=== PATIENT | female | born 1985 | race African-American/Black ===

== ENCOUNTER 2016-10-22 15:36 | Emergency (ER) | payer SELFPAY ==
[~2016-10-22] VITALS: Ht 175.3 cm; Wt 65.0 kg
[2016-10-22 16:16] LABS: BACTERIA, URINE RARE /hpf; BLOOD, URINE MOD (NEG); COMMENT (UR) CULT NOT INDICATED; CULTURE IF INDICATED CULT NOT INDICATED; GLUCOSE,URINE NEG (NEG); HYALINE CAST, URINE 1 /lpf (RARE); KETONE, URINE NEG (NEG); MUCUS URINE FEW /lpf (OCC); NITRITE,URINE NEG (NEG); PH, URINE 5.5 (5.0-8.5); SQUAMOUS EPITHELIAL CELL URINE 21 /hpf (0-5); URINE COLOR YELLOW (YELLW/STRAW)
--- NOTE | 2016-10-22 16:31 | PD ---
HPI . here to check if she is Chief Complaint: Related Problem Time Seen by Provider: 16:30 Travel History International Travel<30 days: No Contact w/Intl Traveler<30days: No Traveled to known affect area: No History of Present Illness HPI 31-year-old female here and wants to know if she is . Patient came to the emergency department demanding testing. She tells us she is 2 months . I go to see the patient and she is asking if she is she is also requesting an ultrasound. She has no other complaints. PFSH Past Medical History Medical History: Denies Significant Hx Tetanus Vaccination: > 5 Years Influenza Vaccination: No ?: Past Surgical History Surgical History: No Previous Surgery Social History Alcohol Use: No Tobacco Use: Yes (CIGARS ) Substance Use: No Allergies-Medications (Allergen,Severity, Reaction): Coded Allergies: No Known Allergies (Unverified , 10/22/16) Reported Meds & Prescriptions Reported Meds & Active Scripts Active No Active Prescriptions or Reported Medications Review of Systems General / Constitutional: No: Fever Eyes: No: Visual changes HENT: No: Headaches Cardiovascular: No: Chest Pain or Discomfort Respiratory: No: Shortness of Breath Gastrointestinal: No: Abdominal Pain Genitourinary: No: Dysuria Musculoskeletal: No: Pain Skin: No Rash Neurologic: No: Weakness Psychiatric: No: Depression Endocrine: No: Polydipsia Hematologic/Lymphatic: No: Easy Bruising Physical Exam Narrative GENERAL: AAO x 3, no acute distress, Well-nourished, well-developed patient. Patient has some bizarre behavior. SKIN: Warm and dry. No visible rashes or bruising. HEAD: Normocephalic and atraumatic. EYES: No scleral icterus. No injection or drainage. ENT: No nasal drainage noted. Mucous membranes pink. Airway patent. NECK: Supple, trachea midline. No JVD. CARDIOVASCULAR: Regular rate and rhythm without murmurs, gallops, or rubs. RESPIRATORY: Breath sounds equal bilaterally. No accessory muscle use. No rhonchi or rales. GASTROINTESTINAL: visual inspection normal EXTREMITIES: No cyanosis or edema. BACK: Nontender without obvious deformity. No CVA tenderness. PSYCH: AAO x 3, normal affect. Data Data Orders Urinalysis - C+S If Indicated (10/22/16 15:46) Ed Urine Pregnancytest Poc (10/22/16 15:46) Labs Laboratory Tests Test 10/22/16 16:09 Urine Color YELLOW Urine Turbidity HAZY Urine pH 5.5 Urine Specific [place] 1.029 Urine Protein 30 mg/dL Urine Glucose (UA) NEG mg/dL Urine Ketones NEG mg/dL Urine Occult Blood MOD Urine Nitrite NEG Urine Bilirubin NEG Urine Urobilinogen 2.0 MG/DL Urine Leukocyte Esterase SMALL Urine RBC 5 /hpf Urine WBC 4 /hpf Urine Squamous Epithelial 21 /hpf Cells Urine Bacteria RARE /hpf Urine Hyaline Casts 1 /lpf Urine Mucus FEW /lpf Microscopic Urinalysis Comment CULT NOT INDICATED MDM Medical Decision Making Medical Screen Exam Complete: Yes Emergency Medical Condition: Yes Medical Record Reviewed: Yes (none on file) Differential Diagnosis amenorrhea, , drug abuse Narrative Course 31-year-old female here and wants to know if she is . Patient came to the emergency department demanding testing. She tells us she is 2 months . I go to see the patient and she is asking if she is she is also requesting an ultrasound. She has no other complaints. Pt seen and examined. test is negative. UA appreciated. Culture not indicated. SHe has no UTI sxs She does demonstrate some bizarre behavior, however all of her responses are appropriate. She is aware of person,place, time and event. She is telling me that she wanted to have an ultrasound to check on her baby. Urine is negative. I explained this to her and advised her that any further testing will need to be done on outpatient basis. She seems understanding. She does not have any suicidal or homicidal thoughts. Diagnosis Primary Impression: Well adult exam Patient Instructions: General Instructions Additional Instructions: Please return to emergency department if your symptoms return or worsen. Follow up with your primary care provider. Scripts No Active Prescriptions or Reported Meds Disposition: 01 DISCHARGE HOME Condition: Stable Mary Lou Ludwig Oct 22, 2016 16:31 Mary Lou Ludwig Oct 22, 2016 16:31
== END 2016-10-22 16:41 | disposition left against medical advice (07) ==
LOC: NEPB 15:36
DX: Z00.00 Encounter for general adult medical examination without abnormal findings (principal)
CPT/HCPCS: 81001; 84703; 99281

== ENCOUNTER 2016-12-14 11:41 | Emergency (ER) | payer SELFPAY ==
[~2016-12-14] VITALS: Ht 175.3 cm; Wt 65.0 kg
[2016-12-14 11:43] VITALS: BP 122/81; PULSE 119; RESP 18; TEMP 99.4; O2SAT 98
--- NOTE | 2016-12-14 11:47 | PD ---
Physical Exam Date Seen by Provider: December 14, 2016 Time Seen by Provider: 11:46 Narrative 31 year old female presents to the emergency department for evaluation of left great toe injury that occurred 5 days ago. She states she dropped a canned good on it. No erythema, swelling. She states she wants it "checked out". Vital signs reviewed. Patient awaiting bed placement. Data Data Last Documented VS Vital Signs Date Time Temp Pulse Resp B/P Pulse Ox O2 Delivery O2 Flow Rate FiO2 12/14/16 11:43 99.4 119 18 122/81 98 MDM Supervised Visit with VIKI: No Scripts No Active Prescriptions or Reported Meds Margo Oropeza December 14, 2016 11:47
--- NOTE | 2016-12-14 12:26 | PD ---
HPI Chief Complaint: Injury Time Seen by Provider: 12:20 Travel History International Travel<30 days: No Contact w/Intl Traveler<30days: No Traveled to known affect area: No History of Present Illness HPI 31-year-old female presents to the emergency Department with complaint of left toe injury that she was evaluated after dropping a canned good on her toe 4 days ago. Denies paresthesias, loss of sensation, decreased range of motion to the affected toe. Is ambulatory on the affected extremity. Has not taken any medications or tried any treatments to alleviate his symptoms. She has no other medical complaints. No known allergies. No other modifying factors or associated signs and symptoms. History Social History Alcohol Use: No Tobacco Use: Yes (CIGARS ) Allergies-Medications (Allergen,Severity, Reaction): Coded Allergies: No Known Allergies (Unverified , 12/14/16) Reported Meds & Prescriptions Reported Meds & Active Scripts Active No Active Prescriptions or Reported Medications Review of Systems Except as stated in HPI: all other systems reviewed are Neg Physical Exam Narrative GENERAL: Well-nourished, well-developed female patient, in no acute distress SKIN: Warm and dry. Left great toe with healing, scabbed, wound to the base of the nailbed that is approximately half a centimeter; without erythema, edema, drainage. The left great toe is without erythema, edema and with full range of motion, sensory intact and less than 3 second cap refill. HEAD: Atraumatic. Normocephalic. EYES: Pupils equal and round. No scleral icterus. No injection or drainage. ENT: Mucosa pink and moist. Airway patent. NECK: Trachea midline. CARDIOVASCULAR: Regular rate. RESPIRATORY: No accessory muscle use. GASTROINTESTINAL: Flat. MUSCULOSKELETAL: No obvious deformities. No clubbing. No cyanosis. No edema. NEUROLOGICAL: Awake and alert. Oriented 3. No obvious cranial nerve deficits. Motor grossly within normal limits. Normal speech. PSYCHIATRIC: Appropriate mood and affect; insight and judgment normal. Data Data Last Documented VS Vital Signs Date Time Temp Pulse Resp B/P Pulse Ox O2 Delivery O2 Flow Rate FiO2 12/14/16 11:43 99.4 119 18 122/81 98 MDM Medical Screen Exam Complete: Yes Emergency Medical Condition: No Differential Diagnosis Medical clearance, toe contusion, toe laceration Narrative Course 31-year-old female presents for evaluation of left great toe injury. I do not suspect fracture or infection of the wound and feel that imaging is not necessary at this time. The wound is healing appropriately and without signs of infection. Heart rate recheck is 90 bpm. Vital signs are stable and the patient is stable for outpatient follow-up and treatment. The patient has no urgent or emergent medical complaints. There is no emergent or urgent medical need at this time. I instructed the patient to follow up with their primary care provider. A medical screening exam was performed: At the time of evaluation the presenting medical condition was determined not to be of an emergent nature. The patient was given the option of receiving additional care, but declined. Patient was given options for additional community resources from which to obtain care. The Patient Has Been advised to seek medical attention for their presenting complaint. The patient has been advised to return to the ER at any time if an emergent condition develops. Primary Impression: Encounter for medical screening examination Scripts No Active Prescriptions or Reported Meds Condition: Stable Radha Sheriff December 14, 2016 12:26
== END 2016-12-14 12:28 | disposition left against medical advice (07) ==
LOC: NEPK 11:41
DX: S99.922A Unspecified injury of left foot, initial encounter (principal); W20.8XXA Other cause of strike by thrown, projected or falling object, initial encounter
CPT/HCPCS: 99281

== ENCOUNTER 2017-05-31 12:55 | Emergency (ER) | payer MEDICAID | END 2017-05-31 13:07 | disposition left against medical advice (07) | LOC: NED 12:55 | DX: R10.9 Unspecified abdominal pain (principal); Z53.21 Procedure and treatment not carried out due to patient leaving prior to being seen by health care provider | CPT/HCPCS: 99281 ==

== ENCOUNTER 2018-06-07 19:47 | Inpatient (IN) ==
[2018-06-07 21:17] LABS: Baso # (Auto) 0.1 th/mm3 (0.0-0.2); Baso % (Auto) 1.1 % (0.0-2.0); Eos # (Auto) 0.2 th/mm3 (0.0-0.4); Hematocrit 37.8 % (35.0-46.0); Hemoglobin 12.9 gm/dL (11.6-15.3); Lymph # (Auto) 3.3 th/mm3 (1.0-4.8); Lymph % (Auto) 47.7 % (9.0-44.0); Mean Corpuscular HGB Conc 34.2 % (32.0-36.0); Mean Corpuscular Hemoglobin 29.6 pg (27.0-34.0); Mean Corpuscular Volume 86.5 fL (80.0-100.0); Mean Platelet Volume 8.1 fL (7.0-11.0); Mono # (Auto) 0.4 th/mm3 (0.0-0.9); Mono % (Auto) 5.9 % (0.0-8.0); Neut # (Auto) 2.9 th/mm3 (1.8-7.7); Neut % (Auto) 42.3 % (16.0-70.0); Platelet Count 270 th/mm3 (150-450); Red Blood Count 4.37 mil/mm3 (4.00-5.30); Red Cell Distribution Width 13.2 % (11.6-17.2)
[2018-06-07 21:39] LABS: Albumin 3.8 g/dL (3.4-5.0); Anion Gap 10 meq/L (5-15); Aspartate Aminotransferase 15 U/L (15-37); Blood Urea Nitrogen 9 mg/dL (7-18); Calcium 8.8 mg/dL (8.5-10.1); Carbon Dioxide 24.7 meq/L (21.0-32.0); Chloride 107 meq/L (98-107); Glomerular Filtration Rate 64 mL/min (>89); Glucose,Random 103 mg/dL (74-106); Potassium 3.5 meq/L (3.5-5.1); Sodium 142 meq/L (136-145)
[2018-06-07 21:51] LABS: Alanine Aminotransferase 17 U/L (10-53); Alkaline Phosphatase 82 U/L (45-117); Total Protein 7.3 g/dL (6.4-8.2)
--- NOTE | 2018-06-07 21:53 | ED ---
HPI General Chief Complaint: Psychiatric Symptoms Stated Complaint: psych justaal/chanel [facility] pd Time Seen by Provider: 06/07/18 20:23 Source: RN notes reviewed and police Mode of arrival: ambulatory Limitations: no limitations History of Present Illness HPI Narrative: This is a middle-aged black female who presents emergency department under [place] act by PD. There were some question of the patient's name so she was placed under a Maria Isabel Abreu. Patient is uncooperative. She was acutely ptotic and delusional. Patient is refusing to answer questions. She is holding her eyes closed and is in restraints. The patient had attempted to leave and was combative and had to be placed in violent restraints. Unable to obtain further history. Related Data Home Medications Medication Instructions Recorded Confirmed Unable to Obtain Home Meds 06/07/18 06/07/18 Allergies Allergy/AdvReac Type Severity Reaction Status Date / Time No Allergy Information Allergy Unverified 06/07/18 20:13 Available Review of Systems ROS Unobtainable ROS Unobtainable: unobtainable due to mental status [facility] Medical History Medical History Medical history unknown (Acute) Social History Social History Substance History: No History of Abuse Second Hand Smoke Exposure: No Smoking Status: Heavy tobacco smoker Tobacco Type: Cigarettes How Often Do You Have a Drink Containing Alcohol: Never Recent Travel in [facility] within the Last 8 Weeks: No Recent Out of Country Travel within the Last 8 Weeks: No Immunization History Tetanus Immunization: Unable to Assess Exam Narrative Exam Narrative: GENERAL: Well-nourished, well-developed patient. Patient is in four-point restraints. There is no evidence of trauma. SKIN: Warm and dry. HEAD: Normocephalic and atraumatic. EYES: No scleral icterus. No injection or drainage. ENT: No nasal drainage noted. Mucous membranes pink. Airway patent. NECK: Supple, trachea midline. Moves head freely without obvious discomfort. CARDIOVASCULAR: Regular rate and rhythm without murmurs, gallops, or rubs. RESPIRATORY: Breath sounds equal bilaterally. No accessory muscle use. GASTROINTESTINAL: Abdomen soft, non-tender, nondistended. EXTREMITIES: No cyanosis or edema. BACK: Nontender without obvious deformity. No CVA tenderness. Neuro: Patient is alert but does not respond to exam. She is holding her eyes closed. PSYCH: Patient is delusional. Course Initial Documented Vital Signs Temperature 98.7 F 06/07/18 20:10 Pulse Rate 109 H 06/07/18 20:10 Respiratory Rate 14 06/07/18 20:10 Blood Pressure 133/85 06/07/18 20:10 Pulse Oximetry 97 06/07/18 20:10 Last Documented Vital Signs Temperature 98.2 F 06/08/18 12:35 Pulse Rate 83 06/08/18 12:35 Respiratory Rate 17 06/08/18 12:35 Blood Pressure 115/83 06/08/18 12:35 Pulse Oximetry 65 L 06/08/18 06:32 Medical Decision Making MDM Narrative Medical decision making narrative: We will perform routine laboratory testing for medical clearance. In order for violent restraints have been placed. Patient is medicated with Geodon 20 mg IM. She will be taken out of restraints per protocol. Medical Screen Exam Complete: Yes Emergency Medical Condition: Yes Differential Diagnosis Differential Diagnosis: MDM: High Differential diagnoses: Schizophrenia, schizoaffective disorder, bipolar, anxiety, depression, adjustment reaction, mood disorder NOS, ODD, depressive disorder NOS, psychosis NOS, substance induced mood disorder, infection, electrolyte abnormality, malingering. Mental health screening discussed with the patient. Psychiatric screen ordered. Lab Data Result diagrams: 06/07/18 20:15 06/07/18 20:15 POC Results POC Urine Results Negative Lab Results 06/07/18 06/07/18 06/08/18 Range/Units 20:15 20:15 12:07 WBC 7.0 (4.0-11.0) th/mm3 RBC 4.37 (4.00-5.30) mil/mm3 Hgb 12.9 (11.6-15.3) gm/dL Hct 37.8 (35.0-46.0) % MCV 86.5 (80.0-100.0) fL MCH 29.6 (27.0-34.0) pg MCHC 34.2 (32.0-36.0) % RDW 13.2 (11.6-17.2) % Plt Count 270 (150-450) th/mm3 MPV 8.1 (7.0-11.0) fL Neut % (Auto) 42.3 (16.0-70.0) % Lymph % (Auto) 47.7 H (9.0-44.0) % [place] % (Auto) 5.9 (0.0-8.0) % Eos % (Auto) 3.0 (0.0-4.0) % Baso % (Auto) 1.1 (0.0-2.0) % Neut # (Auto) 2.9 (1.8-7.7) th/mm3 Lymph # (Auto) 3.3 (1.0-4.8) th/mm3 Sampson # (Auto) 0.4 (0.0-0.9) th/mm3 Eos # (Auto) 0.2 (0.0-0.4) th/mm3 Baso # (Auto) 0.1 (0.0-0.2) th/mm3 WBC Differential . Differential Comment Auto diff final Sodium 142 (136-145) meq/L Potassium 3.5 (3.5-5.1) meq/L Chloride 107 (98-107) meq/L Carbon Dioxide 24.7 (21.0-32.0) meq/L Anion Gap 10 (5-15) meq/L BUN 9 (7-18) mg/dL Creatinine 0.91 (0.50-1.00) mg/dL Estimated GFR 64 L (>89) mL/min Random Glucose 103 (74-106) mg/dL Calcium 8.8 (8.5-10.1) mg/dL Magnesium 2.0 (1.5-2.5) mg/dL Total Bilirubin 0.2 (0.2-1.0) mg/dL AST 15 (15-37) U/L ALT 17 (10-53) U/L Alkaline Phosphatase 82 (45-117) U/L Total Protein 7.3 (6.4-8.2) g/dL Albumin 3.8 (3.4-5.0) g/dL TSH 1.510 (0.358-3.740) uIU/mL Beta HCG, Qual Less than 1.0 (0-5) mIU/mL Urine Opiates Screen Neg (Neg) Ur Barbiturates Screen Neg (Neg) Ur Amphetamines Screen Neg (Neg) U Benzodiazepines Scrn Neg (Neg) Urine Cocaine Screen Neg (Neg) U Cannabinoids Screen Neg (Neg) Serum Alcohol 80 H (0-5) mg/dL Discharge Plan Discharge Disposition Patient Disposition: 30 Still Patient Discharge Condition Condition: Stable Physicians Team ED Provider: Tino Arnold ED Midlevel Provider: Ovidio Hernandez Primary Care Provider: UNKNOWN, Attending Provider: Adonay Sharif Discharge Interventions Interventions: ED Discharge Assessment Last Done: 06/08/18 12:10 Status ED Status: Left Department Discharge Information Discharge Date/Time: 06/08/18 12:19
[2018-06-07 22:04] LABS: Alcohol 80 mg/dL (0-5)
[2018-06-08] MEDS ORDERED: Aluminum/Magnesium/Simethacone Susp 30 ML UDC PO PRN (10:36)
[2018-06-08] MEDS ORDERED: Bisacodyl 10 MG Supp RECTAL PRN (10:36)
[2018-06-08] MEDS ORDERED: LORazepam 1 MG Tablet PO PRN (10:36)
[2018-06-08] MEDS ORDERED: Haloperidol Inj 5 MG/ML Ampul IV.PUSH PRN (10:36)
[2018-06-08 13:09] LABS: Amphetamine Screen,Urine Neg (Neg); Barbiturate Screen,Urine Neg (Neg); Cannabinoid Screen,Urine Neg (Neg); Cocaine Screen,Urine Neg (Neg)
[2018-06-08 13:12] LABS: Opiate Screen,Urine Neg (Neg)
--- NOTE | 2018-06-08 15:25 | P.HPPSY ---
Provisional Diagnosis Admission Date: June 08, 2018 10:38 [place] I.: Unspecified psychosis, rule out schizophrenia, rule out schizoaffective disorder , rule out substance-induced psychosis Competence Certification of Person's Competence To Provide Express and Informed Consent I have personally examined Maria Isabel Pearce, a person being served at [facility] on, June 08, 2018 1517. Express and informed consent means consent voluntarily given in writing, by a competent person, after sufficient explanation and disclosure of the subject matter involved to enable the person to make a knowing and willful decision without any element of force, fraud, deceit, duress, or other form of constraint or coercion. This person is 18 years of age or older, is not now known to be incompetent to consent to treatment with a guardian advocate, and does not have a health care surrogate or proxy currently making medical treatment decisions. I have found this person to be one of the following: [] Competent to provide express and informed consent, as defined above, for voluntary admission to this facility and is competent to provide express and informed consent for treatment. He/she has the consistent capacity to make well reasoned, willful, and knowing decisions concerning his or her medical or mental health treatment. The person fully and consistently understands the purpose of the admission for examination/placement and is fully capable of personally exercising all rights assured under [place] [] Incompetent to provide express and informed consent to voluntary admission, and this is incompetent to provide express and informed consent to treatment. The person must be transferred to involuntary status and a petition for a guardian advocate filed with the Circuit Court. [x] Refusing to provide express and informed consent to voluntary admission but is competent to provide express and informed consent for treatment. The person must be discharged or transferred to involuntary status. Form shall be completed within 24 hours of a person's arrival at the receiving facility and filed in the clinical record of each person: 1. Admitted on a voluntary basis 2. Permitted to provide express and informed consent to his/her own treatment 3. Allowed to transfer from involuntary to voluntary status 4. Prior to permitting a person to consent to his or her own treatment after having been previously found incompetent to consent to treatment. History of Present Illness Capacity: Has capacity History of Present Illness: The patient is a 33-year-old -[place] woman, domiciled in [place] with her account, single, unemployed, supported by [facility], with a psychiatric history of bipolar disorder, schizophrenia, bipolar disorder, alcohol use disorder multiple psychiatric hospitalizations, she denies previous suicidal attempts, she is noted psychotropics, her last hospitalization was in 2013 in [place], no significant medical history, who presents emergency department under [place] act by PD. There were some question of the patient's name so she was placed under a Maria Isabel Abreu. Her initial BAL was 80. U tox is negative at this moment patient is uncooperative. In her initial presentation in the ER the patient was very agitated, aggressive, had to be medicated and physically restrained. She was described as acutely sychotic and delusional. Today my psychiatric evaluation the patient is superficially cooperative, selectively mute, she is refusing to lucina answer, requesting to be discharged. She told me that the reason she is here is because she has a pepper reaction, when I asked her what this is the patient started laughing and appropriate becomes very easily. The patient is urinated and defecated in the pajamas. Also refuses to give me a telephone number for collateral information PPHx: Patient reports history of bipolar disorder, schizophrenia, multiple psychiatric admissions, the last hospitalization was in 2013 in [place] PMHx: No medical history Family HX: Patient denies family psychiatric history Substance Hx: Patient reports the use of alcohol and cannot Social Hx: The patient was born and raised in [place], she losing holy heel with aunt, single, unemployed, supported by [facility] - Inpatient Certification I certify that the inpatient services were ordered in accordance with Medicare regulations governing the order. This includes certification that hospital inpatient services are reasonable and necessary and in the case of services not specified as inpatient-only under 42 CFR 419.22(n), that they are appropriately provided as inpatient services in accordance to with the 2-midnight benchmark under 43 CFR 412.3(e) I certify that inpatient psychiatric hospital services are medically necessary. Evaluation and treatment and/or diagnostic testing are expected to improve the patient's condition. The patient needs on a daily basis, active treatment furnished directly by or requiring the supervision of inpatient psychiatric facility personnel. Estimated Total Length of Stay (Days): 7 Plans for Post Hospital Care: Home Review of Systems All other systems reviewed negative except as stated in HPI Psychiatric: Reports irritability, Reports paranoia PMFSH - History History Provided By: Patient - Medical History Medical History: Medical History (Last Reviewed 06/07/18 @ 21:51 by GEORGES Burgess) Medical history unknown - Tobacco History Second Hand Smoke Exposure: No Tobacco Use In Past 30 Days: Yes Smoking Status: Heavy tobacco smoker Tobacco Type: Cigarettes - Alcohol History How Often Do You Have a Drink Containing Alcohol: Never - Substance Use History Substance History: No History of Abuse - Substance Use Type Alcohol Status: Active Route Used: By Mouth Last Used: 06/07/2018 - Travel History Recent Travel in the [place] Within the Last 8 Weeks: No Recent Travel Out of the Country Within the Last 8 Weeks: No - Immunization History Tetanus Immunization: Unable to Assess Medications and Allergies Active Medications: Active Medications Al Hydrox/Mg Hydrox/Simethicone (Mag-Al Plus Susp Liq) 30 ml PO Q6H PRN PRN Reason: DYSPEPSIA Al Hydroxide/Mg Hydroxide (Milk Of Magnesia Liq) 30 ml PO Q12H PRN PRN Reason: Mild Constipation Bisacodyl (Dulcolax Supp) 10 mg RECTAL DAILY PRN PRN Reason: SEVERE CONSITIPATION Flumazenil (Romazecon Inj) 0.2 mg IV.PUSH Q1M PRN PRN Reason: OVERSEDATION Haloperidol Lactate (Haldol Inj) 1 mg IV.PUSH Q15M PRN PRN Reason: for severe agitation Lactulose (Lactulose Liq) 30 ml PO DAILY PRN PRN Reason: SEVERE CONSITIPATION Lorazepam (Ativan) 1 mg PO Q4H PRN PRN Reason: for CIWA 8-10 Lorazepam (Ativan) 2 mg PO Q2H PRN PRN Reason: for CIWA 11-14 Lorazepam (Ativan Inj) 2 mg IV.PUSH Q1H PRN PRN Reason: for CIWA 15-20 Lorazepam (Ativan Inj) 2 mg IV.PUSH Q15M PRN PRN Reason: for CIWA > 20 Lorazepam (Ativan Inj) 1 mg IV.PUSH Q4H PRN PRN Reason: for CIWA 8-10 Lorazepam (Ativan Inj) 2 mg IV.PUSH Q2H PRN PRN Reason: for CIWA 11-14 Senna/Docusate Sodium (Katie-Colace) 1 tab PO BID ADRIAN Sennosides (Senokot) 17.2 mg PO Q12H PRN PRN Reason: Moderate Constipation Allergies Allergy/AdvReac Type Severity Reaction Status Date / Time No Allergy Information Allergy Unverified 06/07/18 20:13 Available Home Medications Medication Instructions Recorded Confirmed Type Unable to Obtain Home Meds 06/07/18 06/07/18 History Results - Labs CBC & Chem 7: 06/07/18 20:15 06/07/18 20:15 Labs: Laboratory Results - last 24 hr 06/07/18 06/07/18 06/08/18 20:15 20:15 12:07 WBC 7.0 RBC 4.37 Hgb 12.9 Hct 37.8 MCV 86.5 MCH 29.6 MCHC 34.2 RDW 13.2 Plt Count 270 MPV 8.1 Neut % (Auto) 42.3 Lymph % (Auto) 47.[address] % (Auto) 5.9 Eos % (Auto) 3.0 Baso % (Auto) 1.1 Neut # (Auto) 2.9 Lymph # (Auto) 3.3 Lane # (Auto) 0.4 Eos # (Auto) 0.2 Baso # (Auto) 0.1 WBC Differential . Differential Comment Auto diff final Sodium 142 Potassium 3.5 Chloride 107 Carbon Dioxide 24.7 Anion Gap 10 BUN 9 Creatinine 0.91 Estimated GFR 64 L Random Glucose 103 Calcium 8.8 Magnesium 2.0 Total Bilirubin 0.2 AST 15 ALT 17 Alkaline Phosphatase 82 Total Protein 7.3 Albumin 3.8 TSH 1.510 Beta HCG, Qual Less than 1.0 Urine Opiates Screen Neg Ur Barbiturates Screen Neg Ur Amphetamines Screen Neg U Benzodiazepines Scrn Neg Urine Cocaine Screen Neg U Cannabinoids Screen Neg Serum Alcohol 80 H Exam Vital signs: Vital Signs 06/07/18 20:10 06/08/18 06:32 06/08/18 12:35 Temperature 98.7 F 98.2 F Pulse Rate 109 H 65 83 Respiratory Rate 14 14 17 Blood Pressure 133/85 130/60 115/83 Pulse Oximetry 97 65 L Intake & Output 06/07/18 06/08/18 06/08/18 18:59 06:59 18:59 Weight 63.503 kg 71 kg Other: Weight On Admission 71.4 kg Narrative: No tremors, no withdrawal symptoms, no EPS, no psychomotor agitation or retardation at the moment - Constitutional moderate distress - Routine HEENT Exam Head: Present: normocephalic, atraumatic Eye: Present: EOMI, PERRL ENT: Present: mucous membranes moist Mental Status Examination Appearance: Dirty, Disheveled, Malodorous Consciousness: Alert Orientation: x4 Motor Activity: Normal gait Speech: Unremarkable Language: Adequate Fund of Knowledge: Adequate Attention and Concentration: Adequate Memory: Unremarkable Mood: Angry Affect: Irritable Thought Process & Associations: Disorganized Thought Content: Thought blocking, Racing thoughts Hallucination Type: None Delusion Type: Paranoid Suicidal Ideation: No Suicidal Plan: No Suicidal Intention: No Homicidal Ideation: No Homicidal Plan: No Homicidal Intention: No Insight: Poor Judgment: Poor Assessment and Plan - Assessment (1) Unspecified psychosis Code(s): F29 - Unspecified psychosis not due to a substance or known physiological condition Status: Acute - Plan Plan: On my psychiatric evaluation today the patient presents disorganized, agitated, tangential, with neologisms. The patient has been very combative, aggressive, to the point that had to be medicated with Haldol 5 mg and Ativan 2 mg IM stat. She has psychiatric history of schizophrenia, previous psychiatric hospitalizations, she also has alcohol use disorder, initially her BAL was 80. Given her level of psychosis, the patient is a threat to self and others. She will be admitted in psychiatry for stabilization and safety. Haldol 5 mg IM and 2 mg of Ativan for agitation. Order CIWA. Transfer to 2700 unit. Justification for Continued Inpatient Stay: For admission.
[2018-06-08] MEDS: Senna/Docusate Sodium 8.6/50 MG Tablet PO SCH (20:16)
[2018-06-09 09:29] LABS: Calcium 8.5 mg/dL (8.5-10.1); Carbon Dioxide 25.6 meq/L (21.0-32.0); Potassium 3.7 meq/L (3.5-5.1)
[2018-06-09 09:32] LABS: Chol/HDL Ratio 3.41 Ratio
[2018-06-09] MEDS: Senna/Docusate Sodium 8.6/50 MG Tablet PO SCH ×2 (11:23→20:08)
[2018-06-09 13:39] LABS: Hemoglobin A1c 5.4 % (4.3-6.0)
[2018-06-09] MEDS ORDERED: Acetaminophen 500 MG Tablet PO PRN (16:00)
--- NOTE | 2018-06-09 16:21 | P.PNPSY ---
Subjective Remarks: Reviewed electronic medical records and discussed case with staff. Follow-up was conducted in the patient's room with WILLOW Hooper present. He reports the patient has been seclusive, paranoid, mistrusting. She is found lying on bed awake. She states that she feels "all right". Reports that she has been sleeping fine. Asked if she is hearing any voices she states "I got here the telephone voices". In talking with her she says she lives with her boyfriend and that she is currently unemployed waiting for a call back from a job. She claims that she moved down here for school. Throughout the follow-up she answers questions fairly appropriately but seems to become disorganized at times and there seems to be some internal stimulation going on. Mental Status Examination Appearance: Dirty, Disheveled, Malodorous Consciousness: Alert Orientation: x4 Motor Activity: Normal gait Speech: Unremarkable Language: Adequate Fund of Knowledge: Adequate Attention and Concentration: Adequate Memory: Unremarkable Mood: Angry Affect: Irritable Thought Process & Associations: Disorganized Thought Content: Thought blocking, Racing thoughts Hallucination Type: None Delusion Type: Paranoid Suicidal Ideation: No Suicidal Plan: No Suicidal Intention: No Homicidal Ideation: No Homicidal Plan: No Homicidal Intention: No Insight: Poor Judgment: Poor Assessment and Plan - Plan Plan: On my psychiatric evaluation today the patient presents disorganized, agitated, tangential, with neologisms. The patient has been very combative, aggressive, to the point that had to be medicated with Haldol 5 mg and Ativan 2 mg IM stat. She has psychiatric history of schizophrenia, previous psychiatric hospitalizations, she also has alcohol use disorder, initially her BAL was 80. Given her level of psychosis, the patient is a threat to self and others. She will be admitted in psychiatry for stabilization and safety. Haldol 5 mg IM and 2 mg of Ativan for agitation. Order CIWA. Transfer to 2700 unit. Justification for Continued Inpatient Stay: Moving this patient to a less restrictive environment would likely result in decompensation.
--- NOTE | 2018-06-09 16:40 | P.PNPSY ---
Subjective Remarks: This is a request for second opinion. Admission note was reviewed and I agree with the history. Patient was seen and case was discussed with nursing. Patient is irritable and disorganized during her interview. She is very perseverative at first on tooth pain and then on her shoes. She is quite circumstantial and cannot answer questions directly. Denies suicidal or homicidal ideation intent or plan Mental Status Examination Appearance: Dirty, Disheveled, Malodorous Consciousness: Alert Orientation: x4 Motor Activity: Normal gait Speech: Unremarkable Language: Adequate Fund of Knowledge: Adequate Attention and Concentration: Adequate Memory: Unremarkable Mood: Angry, Oppositional Affect: Irritable Thought Process & Associations: Circumstantial, Disorganized Thought Content: Thought blocking, Racing thoughts Hallucination Type: None Delusion Type: Paranoid Suicidal Ideation: No Suicidal Plan: No Suicidal Intention: No Homicidal Ideation: No Homicidal Plan: No Homicidal Intention: No Insight: Poor Judgment: Poor Assessment and Plan - Assessment (1) Unspecified psychosis Code(s): F29 - Unspecified psychosis not due to a substance or known physiological condition Status: Acute - Plan Plan: I agree with the first opinion to continue petition. Criteria include acute psychosis Justification for Continued Inpatient Stay: Patient would decompensate in a less restrictive setting
[2018-06-10] MEDS: Senna/Docusate Sodium 8.6/50 MG Tablet PO SCH ×2 (08:32→20:06)
--- NOTE | 2018-06-10 14:54 | P.PNPSY ---
Subjective Remarks: Reviewed electronic medical records and discussed case with staff. Follow-up was conducted in the patient's room with WILLOW Giraldo. Patient is mumbling and disoriented. She is unable to focus and tangential. She speaks slowly in a low tone and it is difficult to determine what she is trying to say. She is thought blocking. She appears paranoid and avoids eye contact. Nursing staff report that she is eating and sleeping well. Secluded to her room. Review of Systems All other systems reviewed negative except as stated in HPI Mental Status Examination Appearance: Dirty, Disheveled, Malodorous Consciousness: Alert Orientation: x4 Motor Activity: Normal gait Speech: Unremarkable Language: Adequate Fund of Knowledge: Adequate Attention and Concentration: Adequate Memory: Unremarkable Mood: Angry, Oppositional Affect: Irritable Thought Process & Associations: Circumstantial, Disorganized Thought Content: Thought blocking, Racing thoughts Hallucination Type: None Delusion Type: Paranoid Suicidal Ideation: No Suicidal Plan: No Suicidal Intention: No Homicidal Ideation: No Homicidal Plan: No Homicidal Intention: No Insight: Poor Judgment: Poor Assessment and Plan - Assessment (1) Unspecified psychosis Code(s): F29 - Unspecified psychosis not due to a substance or known physiological condition Status: Acute - Plan Plan: Continue with current treatment plan. Psychiatrist will evaluate patient tomorrow. Justification for Continued Inpatient Stay: Moving patient to less restrictive environment may result in her decompensation.
[2018-06-11] MEDS: Senna/Docusate Sodium 8.6/50 MG Tablet PO SCH ×2 (08:16→21:10)
--- NOTE | 2018-06-11 13:35 | P.PNPSY ---
Subjective Remarks: Reviewed electronic medical records and discussed case with staff. Follow-up was conducted in the patient's room with WILLOW Giraldo present. Patient currently still has not received any medications that she does not have a surrogate appointed. Her nurse reports that her thoughts are still disorganized and her speech is rambling. States that she is irritable most of the day. Patient reports that she feels "all right". States that she slept "all right". Her answers are terse and very brief. She remains discharge focused. I concur that her affect is irritable and she still presents as disorganized. Mental Status Examination Appearance: Dirty, Disheveled, Malodorous Consciousness: Alert Orientation: x4 Motor Activity: Normal gait Speech: Unremarkable Language: Adequate Fund of Knowledge: Adequate Attention and Concentration: Adequate Memory: Unremarkable Mood: Angry, Oppositional Affect: Irritable Thought Process & Associations: Circumstantial, Disorganized Thought Content: Thought blocking, Racing thoughts Hallucination Type: None Delusion Type: Paranoid Suicidal Ideation: No Suicidal Plan: No Suicidal Intention: No Homicidal Ideation: No Homicidal Plan: No Homicidal Intention: No Insight: Poor Judgment: Poor Assessment and Plan - Assessment (1) Unspecified psychosis Code(s): F29 - Unspecified psychosis not due to a substance or known physiological condition Status: Acute - Plan Plan: Patient will be reevaluated by the attending psychiatrist. Continue with current treatment plan. Awaiting court date so that a surrogate can be appointed and patient can be medicated. Justification for Continued Inpatient Stay: Moving this patient to a less restrictive environment would likely result in decompensation.
[2018-06-12] MEDS: Senna/Docusate Sodium 8.6/50 MG Tablet PO SCH ×2 (09:02→20:48)
--- NOTE | 2018-06-12 14:21 | P.PNPSY ---
Subjective Remarks: Reviewed electronic medical record and discussed case with staff. Patient seen in her room with WILLOW Giraldo present. Patient found lying on her bed. She remains disorganized stating that she needs to "talk to you in an office, I can only talk in an office". Patient continues to act paranoid. She claims to have left her front door wide open but continues to refuse to provide a contact to address the issue. Mental Status Examination Appearance: Dirty, Disheveled, Malodorous Consciousness: Alert Orientation: x4 Motor Activity: Normal gait Speech: Unremarkable Language: Adequate Fund of Knowledge: Adequate Attention and Concentration: Adequate Memory: Unremarkable Mood: Angry, Oppositional Affect: Irritable Thought Process & Associations: Circumstantial, Disorganized Thought Content: Thought blocking, Racing thoughts Hallucination Type: None Delusion Type: Paranoid Suicidal Ideation: No Suicidal Plan: No Suicidal Intention: No Homicidal Ideation: No Homicidal Plan: No Homicidal Intention: No Insight: Poor Judgment: Poor Assessment and Plan - Assessment (1) Unspecified psychosis Code(s): F29 - Unspecified psychosis not due to a substance or known physiological condition Status: Acute - Plan Plan: Patient will be reevaluated by attending psychiatrist tomorrow [place] of [place] on . She will require a [place] guardian so that we may begin medicating her to target her symptoms. Justification for Continued Inpatient Stay: Moving this patient to a less restrictive environment will result in a decompensation.
[2018-06-13] MEDS: Senna/Docusate Sodium 8.6/50 MG Tablet PO SCH ×2 (09:12→20:47)
--- NOTE | 2018-06-13 13:08 | P.PNPSY ---
Subjective Remarks: The patient was seen today for psychiatric reevaluation. I also have discussed this case with nurse in charge. On my psychiatric evaluation the patient is found in her bed, refusing to wake up, she opens her eyes, but refused to answer my questions. Patient seems to be oppositional, internally preoccupied, paranoid. As per nurses, the patient has been disorganized in the unit, not making much sense, usually isolated, not taking medications, but eating. Mental Status Examination Appearance: Dirty, Disheveled, Malodorous Consciousness: Alert Orientation: x4 Motor Activity: Normal gait Speech: Unremarkable Language: Adequate Fund of Knowledge: Adequate Attention and Concentration: Adequate Memory: Unremarkable Mood: Angry, Oppositional Affect: Irritable Thought Process & Associations: Circumstantial, Disorganized Thought Content: Thought blocking, Racing thoughts Hallucination Type: None Delusion Type: Paranoid Suicidal Ideation: No Suicidal Plan: No Suicidal Intention: No Homicidal Ideation: No Homicidal Plan: No Homicidal Intention: No Insight: Poor Judgment: Poor Assessment and Plan - Assessment (1) Unspecified psychosis Code(s): F29 - Unspecified psychosis not due to a substance or known physiological condition Status: Acute - Plan Plan: Patient continues to be disorganized, acutely psychotic, refusing to take medications. Will be taken to court tomorrow Justification for Continued Inpatient Stay: Continue psychiatric admission for stabilization and safety
[2018-06-13 15:52] VITALS: RESP 18
[2018-06-14 05:51] VITALS: BP 128/79; PULSE 64; TEMP 98.2; O2SAT 100
[2018-06-14] MEDS: Senna/Docusate Sodium 8.6/50 MG Tablet PO SCH (08:23)
--- NOTE | 2018-06-14 13:59 | P.DSPSY ---
Psychiatry Discharge Summary Inpatient Psychiatric care?: Yes Advance Directives: Unknown Reason for Unknown:: Due to Patient Condition Mental Health Advance Directive: Yes Health Care Proxy: No - Admission Admission Date: June 08, 2018 10:38 - Admission Diagnosis (1) Unspecified psychosis Code(s): F29 - Unspecified psychosis not due to a substance or known physiological condition Brief History: The patient is a 33-year-old -[place] woman, domiciled in [place] with her account, single, unemployed, supported by [facility], with a psychiatric history of bipolar disorder, schizophrenia, bipolar disorder, alcohol use disorder multiple psychiatric hospitalizations, she denies previous suicidal attempts, she is noted psychotropics, her last hospitalization was in 2013 in [place], no significant medical history, who presents emergency department under [place] act by PD. There were some question of the patient's name so she was placed under a [facility]. Her initial BAL was 80. U tox is negative at this moment patient is uncooperative. In her initial presentation in the ER the patient was very agitated, aggressive, had to be medicated and physically restrained. She was described as acutely sychotic and delusional. Today my psychiatric evaluation the patient is superficially cooperative, selectively mute, she is refusing to lucina answer, requesting to be discharged. She told me that the reason she is here is because she has a pepper reaction, when I asked her what this is the patient started laughing and appropriate becomes very easily. The patient is urinated and defecated in the pajamas. Also refuses to give me a telephone number for collateral information PPHx: Patient reports history of bipolar disorder, schizophrenia, multiple psychiatric admissions, the last hospitalization was in 2013 in [place] PMHx: No medical history Family HX: Patient denies family psychiatric history Substance Hx: Patient reports the use of alcohol and cannot Social Hx: The patient was born and raised in [place], she losing holy heel with aunt, single, unemployed, supported by [facility] Tobacco Use In Past 30 Days: Yes How Often Do You Have a Drink Containing Alcohol: Never Hospital Course: Patient was admitted in psychiatry due to symptoms of psychosis. The patient was oppositional, isolated, verbally hostile, disorganized. Patient refused to take medications during the hospitalization. She remains mostly inside her room , poorly cooperative, poorly interactive with peers. Did not take any of the medications prescribed. Other than being aggressive in the ER the day of the hospitalization, she was not very aggressive in the rest of hospitalization. Today in court the patient was able to articulate that she wanted to go home, she presented disorganized, with pressured speech, but denies suicidal and was ideation, denies visual and auditory hallucinations. The patient was finally discharged by the ore roaster. She was provided with an outpatient appointment to continue psychiatric care. She was widely educated about the importance of avoiding illegal drugs and alcohol. - Discharge Discharge Date: 06/14/18 Discharge Disposition: Home - Discharge Time > 30 minutes Mental Status Examination Appearance: Appropriate Consciousness: Alert Orientation: x4 Motor Activity: Normal gait Speech: Unremarkable Language: Adequate Fund of Knowledge: Adequate Attention and Concentration: Adequate Memory: Unremarkable Mood: Angry, Oppositional Affect: Irritable Thought Process & Associations: Circumstantial, Disorganized Thought Content: Thought blocking, Racing thoughts Hallucination Type: None Delusion Type: Paranoid Suicidal Ideation: No Suicidal Plan: No Suicidal Intention: No Homicidal Ideation: No Homicidal Plan: No Homicidal Intention: No Insight: Poor Judgment: Poor Discharge/Advance Care Plan - Results Vital Signs: Last Vital Signs Temp 98.2 F 06/14/18 05:48 Pulse 64 06/14/18 05:48 Resp 18 06/14/18 05:48 BP 128/79 06/14/18 05:48 Pulse Ox 100 06/14/18 05:48 Lab Results: Laboratory Results Hemoglobin A1c 5.4 % (4.3-6.0) 06/09/18 07:35 Triglycerides 129 mg/dL (42-150) 06/09/18 07:35 Cholesterol 140 mg/dL (120-200) 06/09/18 07:35 LDL Cholesterol, Calc 73 mg/dL (0-99) 06/09/18 07:35 HDL Cholesterol 41.0 mg/dL (40.0-60.0) 06/09/18 07:35 TSH 1.510 uIU/mL (0.358-3.740) 06/07/18 20:15 Summary of Procedures: None Pending Results: None - Medications Number of antipsychotic medications at discharge: 0 - Discharge Care Plan Goals to Promote Your Health: * To prevent worsening of your condition and complications * To maintain your health at the optimal level Directions to Meet Your Goals: Take your medications as prescribed Follow your dietary instruction Follow activity as directed Keep your appointments as scheduled Take your immunizations and boosters as scheduled If your symptoms worsen call your PCP, if no PCP go to Urgent Care Center or Emergency Room For 27/02 questions related to your inpatient stay or results of tests pending at discharge, please contact Dr. Keyshawn Shahid MD at Smoking is Dangerous to Your Health. Avoid second hand smoking
== END 2018-06-14 14:35 | disposition home or self-care (01) ==
LOC: NEDAMB 19:47 → MERGE 06-08 10:38 → EDBD 06-08 10:38 → NEDA 06-08 10:38 → H270 06-08 12:22
PROVIDERS: ADMIT Psychiatry & Neurology Psychiatry; ATTEND Psychiatry & Neurology Psychiatry